=== PATIENT | male | born 1975 | race Caucasian/White ===

== ENCOUNTER 2019-05-30 04:39 | Emergency (ER) | payer OTHER ==
[~2019-05-30] VITALS: Ht 175.3 cm; Wt 112.7 kg
[2019-05-30 04:44] VITALS: BP 148/80
--- NOTE | 2019-05-30 04:45 | NUR ---
PT AMBULATED WITH STEADY GAIT TO BED 12.
[2019-05-30] MEDS ORDERED: LIDOCAINE 2% 1000 MG/50 ML VIAL INJ ONE (05:00)
--- NOTE | 2019-05-30 05:08 | NUR ---
PT C/O ABSCESS ON LOWER ABDOMEN THAT STARTED YESTERDAY. PT STATES HE TRIED TO SQUEEZE THE AREA; RESULTING IN SWELLING; GREEN EXUDATE; PAIN 6/10 WHEN NOT TOUCHING; A GREEN SCAB THE SIZE OF A DIME SURROUNDED BY A DARK RED SCABBED PERIMETER; WITH AN AREA OF REDNESS/SWELLING AN INCH AND A HALF IN DIAMETER SURROUNDING THE OPENING. AREA IS MOIST IN THE CENTER; WARM TO TOUCH. DENIES TAKING ANYTHING FOR THE PAIN. STATES HE HEATED A SAFETY PIN AND INSERTED IT INTO THE SWELLING TO ATTEMPT TO RELEASE FLUID. PT STATES HE HAD AN ABSCESS IN THE SAME AREA FOUR MONTHS AGO FOR WHICH HE ALSO CAME TO THE ER TO HAVE DRAINED. NKA. NO PMH. VSS. WILL CONTINUE TO MONITOR.
--- NOTE | 2019-05-30 05:09 | NUR ---
DR DAMICO AT BEDSIDE PERFORMING PROCEDURE.
--- NOTE | 2019-05-30 05:18 | NUR ---
PROCEDURE COMPLETED. MD ORDERING MEDS.
[2019-05-30] MEDS ORDERED: SULFAMETH/TRIMETH DS 800/160MG 1 TAB PO ONE (05:20)
[2019-05-30] MEDS ORDERED: CEPHALEXIN 500 MG CAP PO ONE (05:20)
--- NOTE | 2019-05-30 05:28 | NUR ---
PO BACTRIM AND KEFLEX ORDERED. NKA. WILL CONTINUE TO MONITOR. PT 9/10 PAIN IN ABSCESS SITE POST PROCEDURE. MD UPDATED.
[2019-05-30 05:33] VITALS: BP 148/80
--- NOTE | 2019-05-30 05:34 | NUR ---
Patient discharged with v/s stable. Written and verbal after care instructions given and explained. Patient alert, oriented and verbalized understanding of instructions. Ambulatory with steady gait. All questions addressed prior to discharge. ID band removed. Patient advised to follow up with PMD. Rx of KEFLEX, BACTRIM given. Patient educated on indication of medication including possible reaction and side effects. Opportunity to ask questions provided and answered.
== END 2019-05-30 05:34 | disposition home or self-care (01) ==
LOC: MED 04:39
DX: L02.214 Cutaneous abscess of groin (principal)
CPT/HCPCS: 10060; 99283; J2001

== ENCOUNTER 2019-07-10 01:12 | Emergency (ER) | payer OTHER ==
[~2019-07-10] VITALS: Ht 172.7 cm; Wt 115.7 kg
--- NOTE | 2019-07-10 01:39 | NUR ---
pt ambulated to bed 4.
[2019-07-10 01:40] VITALS: BP 168/90
--- NOTE | 2019-07-10 01:40 | NUR ---
43 Y/O MALE C/O UPPER LIP ABSCESS THAT HE TRIED TO POP YESTERDAY. ABSCESS X 1DAY. PAIN 8/10. NON RADIATING PAIN. PT TOOK 1 BACTRIM AT 10AM YESTERDARY MORNING WITH NO RELIEF. PT DENIES ANY OTHER OTC PAIN MEDICATION TAKEN. UPPER LIP HAS MILD REDNESS/EDEMA. TENDER UPON PALP. PT TALKING IN FULL SENTENCES, AIRWAY PATENT. RR 18 EVEN AND UNLABORED AND O2 SAT 98% ROOM AIR. DENIES N/V/D; SKIN IS PINK/WARM/DRY; AAOX4 WITH EVEN AND STEADY GAIT; PT DENIES ANY FEVER, CP, SOB, OR COUGH AT THIS TIME; VSS; PATIENT SITTING IN CHAIR . MEDICAL HX:HEP C NKA
--- NOTE | 2019-07-10 01:50 | NUR ---
AT BEDSIDE EXAMINING PT
[2019-07-10] MEDS ORDERED: DOXYCYCLINE 100 MG CAP PO SCH (02:00)
[2019-07-10] MEDS ORDERED: IBUPROFEN 600 MG TAB PO ONE (02:05)
[2019-07-10] MEDS ORDERED: ACETAMINOPHEN 325 MG TAB PO ONE (02:05)
--- NOTE | 2019-07-10 02:21 | NUR ---
Patient discharged with v/s stable. Written and verbal after care instructions given and explained. Patient alert, oriented and verbalized understanding of instructions. Ambulatory with steady gait. All questions addressed prior to discharge. ID band removed. Patient advised to follow up with PMD. Rx of NORCO/DOXYCYCLINE given. Patient educated on indication of medication including possible reaction and side effects. Opportunity to ask questions provided and answered.
[2019-07-10 02:23] VITALS: BP 168/90
== END 2019-07-10 02:21 | disposition home or self-care (01) ==
LOC: MED 01:12
DX: L03.211 Cellulitis of face (principal)
CPT/HCPCS: 99284

== ENCOUNTER 2020-01-12 20:21 | Emergency (ER) | payer OTHER ==
[~2020-01-12] VITALS: Ht 175.3 cm; Wt 113.4 kg
[2020-01-12 20:26] VITALS: BP 160/105
--- NOTE | 2020-01-12 20:30 | NUR ---
To ED bed 01
[2020-01-12 21:00] VITALS: BP 160/105
--- NOTE | 2020-01-12 21:00 | NUR ---
PT HAVING SWELLING AND PAIN TO RIGHT SIDE OF HIS NOSE WHICH IS RADIATING INTO HIS EYE AND HEAD. 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 NO DRAINAGE FROM NOSE, AFEBRILE, NO COUGH, NO SOB. BED IN LOWEST POSITION ANS SIDERAIL UP X 1. NKA HX- HTN, DM
--- NOTE | 2020-01-12 21:01 | NUR ---
Patient discharged with v/s stable. Written and verbal after care instructions given and explained. Patient alert, oriented and verbalized understanding of instructions. Ambulatory with steady gait. All questions addressed prior to discharge. ID band removed. Patient advised to follow up with PMD. Rx of BACTRIM DS AND KEFLEX given. Patient educated on indication of medication including possible reaction and side effects. Opportunity to ask questions provided and answered.
== END 2020-01-12 21:00 | disposition home or self-care (01) ==
LOC: MED 20:21
DX: R22.0 Localized swelling, mass and lump, head (principal); L53.9 Erythematous condition, unspecified; E11.9 Type 2 diabetes mellitus without complications; I10 Essential (primary) hypertension
CPT/HCPCS: 99283